=== PATIENT | male | born 1960 | race African-American/Black ===

== ENCOUNTER 2018-10-31 11:32 | Inpatient (IN) | payer OTHER ==
[~2018-10-31] VITALS: Ht 185.4 cm; Wt 92.0 kg
[~2018-10-31 11:32] MED LIST: ASPI81TA52 PO; ATEN50TA PO; BACL10TA PO; MULTI PO
[2018-11-10] VITALS (30 sets, daily range): BP systolic 119–166; BP diastolic 57–81; PULSE 54–106; RESP 8–20; Ht 185.4 cm; Wt 92.0 kg
[2018-11-10] MEDS ORDERED: CEFAZOLIN 2 GM/50 ML (PMX) 50 ML IVPB ONE (10:30)
[2018-11-10] MEDS ORDERED: LACTATED RINGER'S 1L BAG IV SCH (10:30)
[2018-11-10] MEDS ORDERED: EPHEDrine 25 MG/5 ML SYG ONE (10:36)
[2018-11-10] MEDS ORDERED: CEFAZOLIN 1 GM INJ ONE ×2 (10:36→17:00)
[2018-11-10] MEDS ORDERED: ROCURONIUM 50 MG INJ ONE (10:36)
[2018-11-10] MEDS ORDERED: PROPOFOL 20 ML ONE (10:36)
[2018-11-10] MEDS ORDERED: PHENYLephrine (100 MCG/ML) 10ML SYG ONE (10:36)
[2018-11-10] MEDS ORDERED: MIDAZOLAM 1 MG/ML 2 ML INJ ONE (10:36)
[2018-11-10] MEDS ORDERED: SEVOFLURANE 15 MIN ONE (10:36)
--- NOTE | 2018-11-10 12:25 | PREAC ---
Date/Time of Note Date/Time of Note DATE: 11/10/18 TIME: 12:23 Anesthesia Eval and Record Evaluation Time Pre-Procedure Interview DATE: 11/10/18 TIME: 12:23 Age 58 Sex male NPO: 8 hrs Preoperative diagnosis Cervical Spine DJD C4-5, C5-6 Planned procedure Anterior Cervical Decompression and Fusion C4-5 and C5-6 Past Medical History Past Medical History: Includes Cardio: HTN Surgery & Anesthesia Issues No known issue Meds Anticoagulation: No Beta Wali within 24 hr: Yes Reported Medications Multivitamins* (Theragran*) 1 Tab Tab, 1 TAB PO DAILY, TAB 11/10/18 Aspirin (Low Dose Aspirin) 81 Mg Tablet.dr, 81 MG PO DAILY, #30 TAB 11/10/18 Baclofen* (Baclofen*) 10 Mg Tablet, 10 MG PO BID, TAB 11/10/18 Atenolol* (Atenolol*) 50 Mg Tablet, 50 MG PO DAILY, #30 TAB 11/10/18 Current Medications Lactated Ringer's (Lr) 1,000 ml IMMIGRATION SPECIALIST TO OR IV Last administered on 11/10/18at 10:53; Admin Dose 1,000 ML; Start 11/10/18 at 10:30; Stop 11/10/18 at 16:00 Meds reviewed: Yes Allergies Coded Allergies: No Known Allergy (Unverified , 11/10/18) Allergies Reviewed: Yes Labs/Studies Labs Reviewed: Reviewed by anesthesiologist Blood Bank Test 11/10/18 11:29 Blood Type O POSITIVE test: N/A Studies: ECG (n/a), CXR (n/a) Pre-procedure Exam Last vitals Vital Signs Date Temp Pulse Resp B/P (MAP) Pulse Ox O2 O2 Flow FiO2 Time Delivery Rate 11/10/18 163/77 11:02 (105) 11/10/18 97.4 54 16 100 10:38 Airway: Adequate mouth opening, Adequate thyromental dist Mallampati: Mallampati II Teeth: Normal Lung: Normal Heart: Normal ASA Physical Status ASA physical status: 2 Emergency: None Planned Anesthetic General/MAC: ETT, A Line Planned Pain Management Parenteral pain med Pre-operative Attestations Prior to commencing anesthesia and surgery, the patient was re-evaluated, there was verification of: *The patient's identity *The results of appropriate recent lab work and preoperative vital signs *The above evaluation not changing prior to induction *Anesthetic plan, risk benefits, alternative and complications discussed with patient/family; questions answered; patient/family understands, accepts and wishes to proceed. BINA COLLIER MD Nov 10, 2018 12:25
--- NOTE | 2018-11-10 12:45 | HPN ---
Date/Time of Note Date/Time of Note DATE: 11/10/18 TIME: 12:45 Interval H&P Admission Note Pt. seen H&P reviewed: No system changes JASON SANON MD Nov 10, 2018 12:45
[2018-11-10] MEDS ORDERED: POLYMYXIN/BACITRACIN 1L IRRIG ONE ×2 (12:46→13:07)
[2018-11-10] MEDS ORDERED: GELATIN SIZE 100 SPONGE ONE (13:06)
[2018-11-10] MEDS ORDERED: THROMBIN 5000 UNIT (RECOTHROM) VIAL ONE (13:06)
[2018-11-10] MEDS ORDERED: BUPIVACAINE 0.25%/EPI (SDV) 30 ML INJ ONE (13:07)
[2018-11-10] MEDS ORDERED: hydrALAzine 20 MG INJ ONE ×2 (13:56→14:23)
[2018-11-10] MEDS ORDERED: LABETALOL HCL 20MG INJ ONE ×2 (14:23→17:20)
[2018-11-10] MEDS ORDERED: METOCLOPRAMIDE 10 MG INJ ONE (14:28)
[2018-11-10] MEDS ORDERED: DEXAMETHASONE 4 MG/ML 5 ML INJ ONE (14:28)
[2018-11-10] MEDS ORDERED: FAMOTIDINE 20 MG INJ ONE (14:28)
[2018-11-10] MEDS ORDERED: ONDANSETRON 4 MG INJ ONE (14:28)
[2018-11-10] MEDS ORDERED: BUPIVACAINE 0.25%/EPI (SDV) 30 ML INJ INJ ONE (14:39)
[2018-11-10] MEDS ORDERED: GELATIN SIZE 100 SPONGE TOP ONE (14:40)
[2018-11-10] MEDS ORDERED: THROMBIN 5000 UNIT (RECOTHROM) VIAL TOP ONE (14:40)
[2018-11-10] MEDS ORDERED: POLYMYXIN/BACITRACIN 1L IRRIG IRR ONE (14:40)
[2018-11-10] MEDS ORDERED: HEMOSTATIC MATRIX/ THROMBIN 1 EA SYG ZFS ONE (14:41)
[2018-11-10] MEDS ORDERED: FENTAnyl 50 MCG/ML VIAL IV PRN ×2 (15:30)
[2018-11-10] MEDS ORDERED: LABETALOL HCL 20MG INJ IV PRN (15:30)
[2018-11-10] MEDS ORDERED: METOCLOPRAMIDE 10 MG INJ IV PRN (15:30)
[2018-11-10] MEDS ORDERED: MEPERIDINE 25 MG INJ IV PRN (15:30)
[2018-11-10] MEDS ORDERED: hydrALAzine 20 MG INJ IV PRN (15:30)
[2018-11-10] MEDS ORDERED: ONDANSETRON 4 MG INJ IV PRN ×2 (15:30→17:30)
[2018-11-10] MEDS ORDERED: DIPHENHYDRAMINE 50 MG INJ IV PRN (15:30)
[2018-11-10] MEDS ORDERED: OXYCODONE/ACETAMINOPHEN (5/325) TAB PO PRN (15:30)
[2018-11-10] MEDS ORDERED: HYDROmorphONE 1 MG/5 ML IV SYRINGE IV PRN ×3 (15:30)
[2018-11-10] MEDS ORDERED: GLYCOPYRROLATE 0.4 MG INJ ONE (17:08)
[2018-11-10] MEDS ORDERED: NEOSTIGMINE 3 MG/3 ML SYRINGE ONE (17:08)
--- NOTE | 2018-11-10 17:23 | OPR ---
Date/Time of Note Date/Time of Note DATE: 11/10/18 TIME: 17:15 Operative Report Free Text/Dictation DATE OF OPERATION: 11/10/2018 PREOPERATIVE DIAGNOSES: 1. C5-6 degenerative disk disease with central and foraminal stenosis with radiculopathy 2. C4-5 degenerative disk disease with central and foraminal stenosis with radiculopathy POSTOPERATIVE DIAGNOSES: 1. C5-6 degenerative disk disease with central and foraminal stenosis with radiculopathy 2. C4-5 degenerative disk disease with central and foraminal stenosis with radiculopathy OPERATION PERFORMED: 1.Anterior cervical level C5-6 diskectomy with central and foraminal decompression 2. Anterior cervical disc C5-6 instrumented fusion with allograft 3.Anterior cervical level C4-5 diskectomy with central and foraminal decompression 4. Anterior cervical disc C4-5 instrumented fusion with allograft 5. Use of operative microscope SURGEON: Jason Sanon MD JUNIOR ACCOUNT MANAGER: ANNIA Graham INDICATIONS: Patient is a 58 -year-old male who presents with a several year history of neck and right greater than left upper extremity pain with weakness. After having failed all attempts at conservative management, surgical treatment was recommended. He understood the risks included, but were not limited to, infection, neurologic injury, verve root and spinal cord injury, blood loss, dysphagia, dysphonia, espohogeal injury, dural tear, pseudarthosis, adjacent segment disease, persistence of preoperative symptoms and a potential need for further operative procedures and he elected to proceed with surgery. PROCEDURE IN DETAIL: The patient was identified in the pre-operative area where the operative site was marked in indelible ink. He was brought in the operating room. General anesthesia was obtained. Preoperative antibiotics were given. He was carefully positioned supine on the radiolucent table. The arms were padded and tucked at the sides. The neck was sterilely prepped and draped in the usual fashion. A standard left-sided skin incision was made in a prominent anterior skin fold. This was continued down through subcutaneous tissue to the platysma fascia. Full-thickness skin flaps were developed. The platysma was split in line with the direction of its fibers. The dissection proceeded through the deep cervical fascia at the interval between the esophagus and spine. The prevertebral fascia was carefully incised, cleared off at the anterior aspect of the C4-5 disk space. The anterior longitudinal ligament was carefully isolated as was the longus coli bilaterally. A [place] retraction cannula was placed into the C4 vertebral body, and an intraoperative radiograph was obtained to confirm the location of the midline along with the operative level. Once this was confirmed, a 2nd [place] pin was placed in the C5 vertebral body, and the longus colli was mobilized bilaterally using bipolar cautery and an elevator. A deep self-retaining retractor was placed underneath the longus colli bilaterally and then distraction was applied across the interspace. The operative microscope was at this point brought in. The osteophyte projecting over the anterior aspect of the C4-5 disk space was at this point resected with a spinal rongeur, and then the anterior portion of the disk was incised with a #15 blade. The disk was excised in its entirety using a series of pituitary rongeurs and angled curettes back to the posterior longitudinal ligament. The uncovertebral osteophyte was resected to allow for foraminal decompression. A foraminotomy was performed bilaterally until a probe could be easily passed along the pathway of the C5 nerve roots. The posterior disk and the PLL were also removed using a nerve hook and a 2mm kerrison. The cord was noted to be decompressed. Hemostasis was obtained at this point, and then a series of trial sizers were used to select an appropriated size allograft spacer. Care was take not to disrupt the endplates. Intraoperative radiographs demonstrated good alignment of the trial, and then the final implant was selected and then inserted into the disk space. This was positioned appropriately and extended to the back of the C4 and C5 vertebral bodies. We used a 7mm height and 7 degree lordotic allograft implant. We then focused on the C5-6 level. Once this was confirmed, a 2nd [place] pin was placed in the C6 vertebral body, and the longus colli was mobilized bilaterally using bipolar cautery and an elevator. A deep self-retaining retractor was placed underneath the longus colli bilaterally and then distraction was applied across the interspace. The operative microscope was at this point brought in. The osteophyte projecting over the anterior aspect of the C5-6 disk space was at this point resected with a spinal rongeur, and then the anterior portion of the disk was incised with a #15 blade. The disk was excised in its entirety using a series of pituitary rongeurs and angled curettes back to the posterior longitudinal ligament. The uncovertebral osteophyte was resected to allow for foraminal decompression. A foraminotomy was performed bilaterally until a probe could be easily passed along the pathway of the C6 nerve roots. The posterior disk and the PLL were also removed using a nerve hook and a 2mm kerrison. The cord was noted to be decompressed. Hemostasis was obtained at this point, and then a series of trial sizers were used to select an appropriated size allograft spacer. Care was take not to disrupt the endplates. Intraoperative radiographs demonstrated good alignment of the trial, and then the final implant was selected and then inserted into the disk space. This was positioned appropriately and extended to the back of the C5 and C6 vertebral bodies. We used a 6mm height and 7 degree lordotic allograft implant. We then chose an appropriate sized plate (34mm) was placed and secured it in standard fashion. X-Rays were taken to ensure appropriate alignment and length of the plate as well as screw sizes. The operative site was washed out extensively with sterile normal saline. There was no significant bleeding. The [place] pins were removed, and the sites were blocked off with bone wax. The platysma fascia was then closed with 3-0 Vicryl suture in a running simple fashion over a medium hemovac drain, followed by 4-0 moncryl to close the skin in a running subcuticular fashion. Dermabond was placed, followed by a sterile dressing. The patient was extubated and transferred out to the postanesthesia care unit in a hard collar in good condition. There were no complications. Procedure Date: Nov 10, 2018 Preoperative Diagnosis 1. C5-6 degenerative disk disease with central and foraminal stenosis with radiculopathy 2. C4-5 degenerative disk disease with central and foraminal stenosis with radiculopathy Postoperative Diagnosis 1. C5-6 degenerative disk disease with central and foraminal stenosis with radic ulopathy 2. C4-5 degenerative disk disease with central and foraminal stenosis with radiculopathy Operation/Procedure Performed 1.Anterior cervical level C5-6 diskectomy with central and foraminal decompression 2. Anterior cervical disc C5-6 instrumented fusion with allograft 3.Anterior cervical level C4-5 diskectomy with central and foraminal decompr ession 4. Anterior cervical disc C4-5 instrumented fusion with allograft 5. Use of operative microscope Surgeon see signature line Heating Repair Technician ANNIA Graham Anesthesia Type: general Estimated Blood Loss: 10 - 50 ml's Transfusion none Specimen C4-5 and C5-6 Disk Grafts/Implants none Complications none Pt Condition Post Procedure: stable Disposition: PACU Procedure Description PROCEDURE IN DETAIL: The patient was identified in the pre-operative area where the operative site was marked in indelible ink. He was brought in the operating room. General anesthesia was obtained. Preoperative antibiotics were given. He was carefully positioned supine on the radiolucent table. The arms were padded and tucked at the sides. The neck was sterilely prepped and draped in the usual fashion. A standard left-sided skin incision was made in a prominent anterior skin fold. This was continued down through subcutaneous tissue to the platysma fascia. Full-thickness skin flaps were developed. The platysma was split in line with the direction of its fibers. The dissection proceeded through the deep cervical fascia at the interval between the esophagus and spine. The prevertebral fascia was carefully incised, cleared off at the anterior aspect of the C4-5 disk space. The anterior longitudinal ligament was carefully isolated as was the longus coli bilaterally. A [place] retraction cannula was placed into the C4 vertebral body, and an intraoperative radiograph was obtained to confirm the location of the midline along with the operative level. Once this was confirmed, a 2nd [place] pin was placed in the C5 vertebral body, and the longus colli was mobilized bilaterally using bipolar cautery and an elevator. A deep self-retaining retractor was placed underneath the longus colli bilaterally and then distraction was applied across the interspace. The operative microscope was at this point brought in. The osteophyte projecting over the anterior aspect of the C4-5 disk space was at this point resected with a spinal rongeur, and then the anterior portion of the disk was incised with a #15 blade. The disk was excised in its entirety using a series of pituitary rongeurs and angled curettes back to the posterior longitudinal ligament. The uncovertebral osteophyte was resected to allow for foraminal decompression. A foraminotomy was performed bilaterally until a probe could be easily passed along the pathway of the C5 nerve roots. The posterior disk and the PLL were also removed using a nerve hook and a 2mm kerrison. The cord was noted to be decompressed. Hemostasis was obtained at this point, and then a series of trial sizers were used to select an appropriated size allograft spacer. Care was take not to disrupt the endplates. Intraoperative radiographs demonstrated good alignment of the trial, and then the final implant was selected and then inserted into the disk space. This was positioned appropriately and extended to the back of the C4 and C5 vertebral bodies. We used a 7mm height and 7 degree lordotic allograft implant. We then focused on the C5-6 level. Once this was confirmed, a 2nd [place] pin was placed in the C6 vertebral body, and the longus colli was mobilized bilaterally using bipolar cautery and an elevator. A deep self-retaining retractor was placed underneath the longus colli bilaterally and then distraction was applied across the interspace. The operative microscope was at this point brought in. The osteophyte projecting over the anterior aspect of the C5-6 disk space was at this point resected with a spinal rongeur, and then the anterior portion of the disk was incised with a #15 blade. The disk was excised in its entirety using a series of pituitary rongeurs and angled curettes back to the posterior longitudinal ligament. The uncovertebral osteophyte was resected to allow for foraminal decompression. A foraminotomy was performed bilaterally until a probe could be easily passed along the pathway of the C6 nerve roots. The posterior disk and the PLL were also removed using a nerve hook and a 2mm kerrison. The cord was noted to be decompressed. Hemostasis was obtained at this point, and then a series of trial sizers were used to select an appropriated size allograft spacer. Care was take not to disrupt the endplates. Intraoperative radiographs demonstrated good alignment of the trial, and then the final implant was selected and then inserted into the disk space. This was positioned appropriately and extended to the back of the C5 and C6 vertebral bodies. We used a 6mm height and 7 degree lordotic allograft implant. We then chose an appropriate sized plate (34mm) was placed and secured it in standard fashion. X-Rays were taken to ensure appropriate alignment and length of the plate as well as screw sizes. The operative site was washed out extensively with sterile normal saline. There was no significant bleeding. The [place] pins were removed, and the sites were blocked off with bone wax. The platysma fascia was then closed with 3-0 Vicryl suture in a running simple fashion over a medium hemovac drain, followed by 4-0 moncryl to close the skin in a running subcuticular fashion. Dermabond was placed, followed by a sterile dressing. The patient was extubated and transferr ed out to the postanesthesia care unit in a hard collar in good condition. There were no complications. JASON SANON MD Nov 10, 2018 17:23
[2018-11-10] MEDS ORDERED: NALOXONE (0.4 MG/ML) INJ IV PRN (17:30)
[2018-11-10] MEDS ORDERED: AL HYDROX/MG HYDROX/SIMETH 30 ML CUP PO PRN (17:30)
[2018-11-10] MEDS ORDERED: HYDROCODONE/APAP (5/325) TAB PO PRN ×2 (17:30)
[2018-11-10] MEDS ORDERED: ACETAMINOPHEN 325 MG TAB PO PRN (17:30)
[2018-11-10] MEDS ORDERED: HYDROmorphONE 0.2 MG/ML PCA IV SCH (17:30)
[2018-11-10] MEDS ORDERED: PROCHLORPERAZINE 10 MG TAB PO PRN (17:30)
[2018-11-10] MEDS ORDERED: NACL 0.9% 3 ML SYG IV SCH (17:30)
--- NOTE | 2018-11-10 17:35 | PAC ---
Date/Time of Note Date/Time of Note DATE: 11/10/18 TIME: 17:35 Post-Anesthesia Notes Post-Anesthesia Note Last documented vital signs Vital Signs Date Temp Pulse Resp B/P (MAP) Pulse Ox O2 O2 Flow FiO2 Time Delivery Rate 11/10/18 98.5 17:31 11/10/18 163/77 11:02 (105) 11/10/18 54 16 100 10:38 Activity: WNL Respiratory function: WNL Cardiovascular function: WNL Mental status: Baseline Pain reasonably controlled: Yes Hydration appropriate: Yes Nausea/Vomiting absent: Yes BINA COLLIER MD Nov 10, 2018 17:35
[2018-11-10] MEDS: FENTAnyl 50 MCG/ML VIAL IV PRN ×2 (18:07→18:30)
[2018-11-10] MEDS: CEFAZOLIN 1 GM/50 ML (PMX) 50 ML IVPB SCH ×2 (18:13→23:58)
[2018-11-10] MEDS: DEXTROSE 5%-0.45% NACL 1,000 ML IV SCH (20:42)
[2018-11-11 00:30] VITALS: BP 139/65; PULSE 97; RESP 18
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
[2018-11-11 02:36] VITALS: BP 146/71; PULSE 96; RESP 18
[2018-11-11] MEDS: DEXTROSE 5%-0.45% NACL 1,000 ML IV SCH ×2 (03:24→10:10)
[2018-11-11 04:47] VITALS: BP 150/72; PULSE 83; RESP 19
[2018-11-11] MEDS: CEFAZOLIN 1 GM/50 ML (PMX) 50 ML IVPB SCH ×2 (05:36→12:09)
[2018-11-11 07:45] VITALS: BP 164/76; PULSE 72; RESP 18
--- NOTE | 2018-11-11 08:49 | CONS ---
Assessment/Plan Assessment/Plan Hospital Course (Demo Recall) 1. Skinny is now 1 day postop a cervical spine surgery for cervical radiculopathy. He is doing well. He is afebrile. He is swallowing without a problem. His blood pressure is slightly elevated. If BP remains elevated I will add another medication to his regimen. 2. Patient can start physical therapy as tolerated. Consultation Date/Type/Reason Admit Date/Time Nov 10, 2018 at 08:59 Initial Consult Date Date/Time of Note DATE: 11/11/18 TIME: 08:45 24 HR Interval Summary Free Text/Dictation Skinny is now 1 day postop a cervical spine surgery. He is awake and alert. He is sitting up eating breakfast. Constitutional: no complaints, improved Exam/Review of Systems Exam Vitals Vital Signs Date Temp Pulse Resp B/P (MAP) Pulse Ox O2 O2 Flow FiO2 Time Delivery Rate 11/11/18 97.7 72 18 164/76 100 Nasal 07:45 (105) Cannula 11/10/18 3.0 19:24 Intake and Output 11/10/18 11/10/18 11/11/18 1515:00 23:00 07:00 IntakeIntake Total 2300 ml 100 ml 1000 ml OutputOutput Total 125 ml 750 ml BalanceBalance 2300 ml -25 ml 250 ml Constitutional: alert, oriented, well developed Respiratory: clear to auscultation, normal air movement Cardiovascular: regular rate and rhythm Gastrointestinal: soft, non-tender Musculoskeletal: nl extremities to inspection Results Result Diagram: 11/11/18 0431 11/11/18 0431 Results 24hrs Laboratory Tests Test 11/11/18 04:31 11/11/18 07:57 Hemoglobin 14.4 Hematocrit 43.7 Sodium Level 139 Potassium Level 4.2 Chloride Level 103 Carbon Dioxide Level 25 Anion Gap 11 Blood Urea Nitrogen 11 Creatinine 0.92 Est Glomerular Filtrat Rate mL/min > 60 Glucose Level 148 Calcium Level 8.9 Lab Scanned Report REFERENCE LAB Medications Medication Current Medications Dextrose/Sodium Chloride 1,000 ml @ 100 mls/hr Q10H IV Last administered on 11/10/18at 20:42; Admin Dose 100 MLS/HR; Start 11/10/18 at 17:24 Acetaminophen/ Hydrocodone Bitart ([place] (5/325)) 1 tab Q4H PRN PO .PAIN 1-5; Start 11/10/18 at 17:30 Acetaminophen/ Hydrocodone Bitart ([place] (5/325)) 2 tab Q4H PRN PO .PAIN 6-10; Start 11/10/18 at 17:30 Cefazolin Sodium 50 ml @ 100 mls/hr Q6 IVPB Last administered on 11/11/18at 05:36; Admin Dose 100 MLS/HR; Start 11/10/18 at 18:00; Stop 11/11/18 at 12:29 Prochlorperazine (Compazine) 10 mg Q4H PRN PO NAUSEA/VOMITING; Start 11/10/18 at 17:30 Ondansetron HCl (Zofran Inj) 4 mg Q6H PRN IV NAUSEA/VOMITING; Start 11/10/18 at 17:30 Al Hydrox/Mg Hydrox/Simethicone (Mag-Al Plus) 15 ml Q4H PRN PO .CONSTIPATION; Start 11/10/18 at 17:30 Docusate Sodium (Colace) 100 mg BID PO Last administered on 11/11/18at 08:07; Admin Dose 100 MG; Start 11/11/18 at 09:00 Acetaminophen (Tylenol Tab) 650 mg Q4H PRN PO TEMP GREATER THAN 101F OR WOLFE; Start 11/10/18 at 17:30 IV Flush (NS 3 ml) 3 ml PER PROTOCOL IV ; Start 11/10/18 at 17:30 Hydromorphone HCl (Dilaudid STOVE CLEANER) Q4PCA IV Last administered on 11/10/18at 17:51; Admin Dose 6 MG; Start 11/10/18 at 17:30 Naloxone HCl (Narcan) 0.2 mg Q2M PRN IV RR 8 BREATHS/MIN OR LESS; Start 11/10/18 at 17:30 Atenolol (Tenormin) 50 mg DAILY PO Last administered on 11/11/18at 08:08; Admin Dose 50 MG; Start 11/11/18 at 09:00 NIKO SHETH MD Nov 11, 2018 08:49
[2018-11-11] MEDS ORDERED: ATENOLOL 50 MG TAB PO SCH (09:00)
[2018-11-11] MEDS ORDERED: DOCUSATE SODIUM 100 MG CAP PO SCH (09:00)
--- NOTE | 2018-11-11 12:26 | PDOCDIS ---
Discharge Instructions CONDITION [id number] Patient Condition: [id number] Good HOME CARE INSTRUCTIONS: [id number] Diet Instructions: [id number] Regular ACTIVITY: [id number] Activity Restrictions: [id number] Avoid heavy lifting Avoid Heavy Housework [id number] Bathing Restrictions: [id number] Shower FOLLOW UP/APPOINTMENTS Follow-up Plan Follow-up with Dr. Sanon in 2 weeks JASON SANON MD Nov 11, 2018 12:26
[2018-11-11] MEDS ORDERED: DEXAMETHASONE 10 MG/ML 1 ML INJ IV ONE (13:00)
[2018-11-11 14:00] VITALS: BP 153/72; PULSE 67; RESP 18
--- NOTE | 2018-12-03 10:38 | DS ---
DATE OF ADMISSION: 11/10/2018 DATE OF DISCHARGE: 11/11/2018 DIAGNOSIS ON ADMISSION: Cervical degenerative disk disease C4-C6 with radiculopathy. DISCHARGE DIAGNOSES: Cervical degenerative disk disease C4-C6 with radiculopathy. PROCEDURE PERFORMED DURING THIS ADMISSION: On 11/10/2018 patient underwent an anterior cervical disk ectomy and fusion from C4-C6. HOSPITAL COURSE: The patient had an uncomplicated hospital course. Prior to discharge, he was tommie ating a regular diet. He was tolerating his pain with p.o. pain medication. He was cleared by physi andreas therapy. ACTIVITY AT DISCHARGE: The patient was told to wear a hard cervical collar when out of bed and ambul ating. He was told to avoid activities that require lifting greater than 20 pounds, and excessive ce rvical range of motion. MEDICATIONS AT DISCHARGE: The patient was given a prescription for [place] 5/325 mg 1 to 2 tabs q.4-6h . p.r.n. pain. WOUND CARE: The patient was told to keep his anterior cervical incision clean, dry and intact when s howering. He was told to cover the wound when showering. He was told that if the dressing became we t, to change dressing for a dry one. Additional dressing changes were given to the patient. FOLLOWUP: The patient was told to follow up with Dr. Márquez in 2 weeks for repeat evaluation. He was told to contact our office for an earlier visit if he developed any fevers, chills, chest pain, shortness of breath, motor, or sensory changes or issues with his wound. DIET: Soft mechanical and advance to regular as tolerated. Dictated By: JASON MCKEON/THOMAS Conf#: [id number] DID#: [id number]
== END 2018-11-11 17:45 | disposition home or self-care (01) | DRG 473 ==
LOC: REC 11-10 08:59 → MS1 11-10 20:21
PROVIDERS: ADMIT Orthopaedic Surgery; ATTEND Orthopaedic Surgery
PROC: 0RG10A0 Fusion of Cervical Vertebral Joint with Interbody Fusion Device, Anterior Approach, Anterior Column, Open Approach (ICD-10-PCS; 2018-11-10)
PROC: 0RT30ZZ Resection of Cervical Vertebral Disc, Open Approach (ICD-10-PCS; 2018-11-10)
PROC: 01N10ZZ Release Cervical Nerve, Open Approach (ICD-10-PCS; principal; 2018-11-10 13:00)
DX: M50.022 Cervical disc disorder at C5-C6 level with myelopathy (principal); M50.122 Cervical disc disorder at C5-C6 level with radiculopathy; M48.02 Spinal stenosis, cervical region; I10 Essential (primary) hypertension
CPT/HCPCS: 72050; 80048; 85014; 85018; 86850; 86900; 86901; 88304; 97116; 97161; 97530; J0360; J0690; J1100; J1170; J2175; J2250; J2370; J2405; J2710; J2765; J3010; J7042